=== PATIENT | female | born 1985 | race Caucasian/White ===

== ENCOUNTER 2017-12-09 09:14 | Day surgery (SDC) | payer OTHER ==
[~2017-12-09 09:14] MED LIST: GLYCOPYRROLATE 0.4 MG INJ; NEOSTIGMINE 3 MG/3 ML SYRINGE; PROPOFOL 200 MG INJ
[2017-12-09] MEDS ORDERED: DEXTROSE 5%-LR 1,000 ML IV (11:00)
[2017-12-09] MEDS ORDERED: ONDANSETRON 4 MG INJ (11:58)
[2017-12-09] MEDS ORDERED: PROPOFOL 20 ML (11:58)
[2017-12-09] MEDS ORDERED: ROCURONIUM 50 MG INJ (11:58)
[2017-12-09] MEDS ORDERED: FENTAnyl 50 MCG/ML VIAL (11:58)
[2017-12-09] MEDS ORDERED: MIDAZOLAM 1 MG/ML 2 ML INJ (12:00)
[2017-12-09] MEDS ORDERED: METOCLOPRAMIDE 10 MG INJ (12:00)
[2017-12-09] MEDS: OXYMETAZOLINE 0.05% 15 ML NAS SPRAY NASAL ×4 (12:35→16:20)
[2017-12-09] MEDS: LIDOCAINE 1%/EPI 30 ML INJ (12:35)
[2017-12-09] MEDS ORDERED: HYDROmorphONE 1 MG/5 ML IV SYRINGE IV ×3 (14:30)
[2017-12-09] MEDS ORDERED: ONDANSETRON 4 MG INJ IV (14:30)
[2017-12-09] MEDS ORDERED: DIPHENHYDRAMINE 50 MG INJ IV (14:30)
[2017-12-09] MEDS: OXYCODONE/ACETAMINOPHEN (5/325) TAB PO (17:24)
== END 2017-12-09 17:41 | disposition home or self-care (01) ==
LOC: SDS 09:14
DX: J34.2 Deviated nasal septum (principal); J34.3 Hypertrophy of nasal turbinates; J32.0 Chronic maxillary sinusitis; I51.9 Heart disease, unspecified
CPT/HCPCS: 30140; 88300; 93005

== ENCOUNTER 2017-12-13 09:05 | Emergency (ER) | payer MEDICAID, OTHER | END 2017-12-13 10:00 | disposition home or self-care (01) | LOC: FTE 09:05 | DX: G89.18 Other acute postprocedural pain (principal); J34.89 Other specified disorders of nose and nasal sinuses | CPT/HCPCS: 99282; Z7502 ==